=== PATIENT | male | born 1995 | race Caucasian/White ===

== ENCOUNTER 2016-11-05 16:19 | Emergency (ER) | payer OTHER ==
--- NOTE | 2016-11-05 17:13 | ER Document Report ---
ED Psych Disorder / Suicide - General TRAVEL OUTSIDE OF THE [place] IN LAST 30 DAYS: No <JNOG JAY - Last Filed: 11/05/16 18:56> <JIA MARTINEZ - Last Filed: 11/06/16 14:07> - General Chief Complaint: Suicidal Ideation Stated Complaint: SUICIDAL IDEATIONS Notes: Patient is here with his mother having reportedly written a note that he shared with friends at school that he intended to break a bathroom window and use the broken glass to slit his wrist to kill himself today. The friends and others were able to get to him in time to keep him from doing so. Patient does not identify any triggering activities or recurrences that brought him to feeling suicidal so quickly. No history of previous suicide attempt. Patient says that he's been suffering from depression for about 7 years. He's only been feeling suicidal for about 7 days. The patient has a history of ADHD , ODD, IED, and Aspergers syndrome. He is not on any current medications for any of these disorders. Patient's only other medical condition is that he has insulin-dependent diabetes for the past 2 years. He is on NovoLog 70/30, 80 units every 10 AM and 8 units every 10 PM (JONG JAY) - Related Data Allergies/Adverse Reactions: No Known Allergies Allergy (Unverified 01/09/15 16:22) Past Medical History - Social History Smoking Status: Unknown if Ever Smoked Cigarette use (# per day): No Family History: Reviewed & Not Pertinent Patient has suicidal ideation: Yes Patient has homicidal ideation: No - Past Medical History Cardiac Medical History: Reports: Hx Hypercholesterolemia Endocrine Medical History: Reports: Hx Diabetes Mellitus Type 1 Psychiatric Medical History: Reports: Hx Attention Deficit Hyperactivity Disorder, Other - ODD, IED, Aspergers syndrome Past Surgical History: Reports: Hx Orthopedic Surgery - rt foot arch repair - Immunizations Hx Diphtheria, Pertussis, Tetanus Vaccination: Yes <JONG JAY - Last Filed: 11/05/16 18:56> Review of Systems <JONG JAY - Last Filed: 11/05/16 18:56> <JIA MARTINEZ - Last Filed: 11/06/16 14:07> - Review of Systems Notes: REVIEW OF SYSTEMS: CONSTITUTIONAL : Denies fever. EENT: Denies eye, ear, nose or mouth or throat pain or other symptoms. CARDIOVASCULAR: Denies chest pain. RESPIRATORY: Denies cough, chest congestion, or shortness of breath. GASTROINTESTINAL: Denies abdominal pain or nausea, vomiting, or diarrhea. GENITOURINARY: Denies difficulty or painful urinating, urinary frequency, blood in urine. MUSCULOSKELETAL: Denies back or neck pain. Denies joint pain or swelling. SKIN: Denies rash or skin lesions. NEUROLOGICAL: Denies LOC or altered mental status. Denies headache. Denies sensory loss or motor deficits. Psychiatric: Depression, see history of present illness. ALL OTHER SYSTEMS REVIEWED AND NEGATIVE. (JONG JAY) Physical Exam - Vital signs Interpretation: Normal <JONG JAY - Last Filed: 11/05/16 18:56> <JIA MARTINEZ - Last Filed: 11/06/16 14:07> - Vital signs Vitals: Temp Pulse Resp BP Pulse Ox 98.1 F 76 14 146/75 H 96 11/05/16 16:21 11/05/16 16:21 11/05/16 16:21 11/05/16 16:21 11/05/16 16:21 - Notes Notes: PHYSICAL EXAMINATION: GENERAL: Well-appearing, in no acute distress. Vital signs are all normal. HEAD: Atraumatic, normocephalic. EYES: Pupils equal round and reactive to light, extraocular movements intact. ENT: oropharynx clear without exudates. Moist mucous membranes. NECK: Normal range of motion, supple. LUNGS: Breath sounds clear and equal bilaterally. HEART: Regular rate and rhythm without murmurs. ABDOMEN: Soft, nontender. No guarding or rebound. BACK: No tenderness throughout entire back. EXTREMITIES: Normal range of motion without pain. NEUROLOGICAL: Normal speech, normal gait. Normal sensory, motor, and reflex exams. Awake, alert, and oriented x3. Cranial nerves normal. PSYCH: Normal mood, normal affect. SKIN: Warm, dry, no rashes. (JONG JAY) Course - Laboratory Result Diagrams: 11/05/16 17:24 11/05/16 17:24 - EKG Interpretation by Ok EKG shows normal: Sinus rhythm Rate: Normal Rhythm: NSR <JONG JAY - Last Filed: 11/05/16 18:56> - Laboratory Result Diagrams: 11/05/16 17:24 11/05/16 17:24 <JIA MARTINEZ - Last Filed: 11/06/16 14:07> - Re-evaluation Re-evalutation: 11/05/16 18:57 Patient evaluated by mental health staff and started on Keppra and Zyprexa and they will follow up with him in the morning. Patient is staying voluntarily for tonight. (JONG JAY) - Vital Signs Vital signs: Temp Pulse Resp BP Pulse Ox 97.7 F 81 18 133/76 H 96 11/06/16 13:00 11/06/16 13:00 11/06/16 13:00 11/06/16 13:00 11/06/16 13:00 - Laboratory Laboratory results interpreted by me: 11/05/16 11/05/16 11/05/16 17:24 19:05 20:24 Glucose 234 H POC Glucose 248 H Calcium 10.4 H Urine Glucose (UA) >=500 H Urine Urobilinogen 2.0 H Salicylates < 1.0 L Acetaminophen < 10 L 11/06/16 11/06/16 05:02 08:12 Glucose POC Glucose 228 H 178 H Calcium Urine Glucose (UA) Urine Urobilinogen Salicylates Acetaminophen - EKG Interpretation by Me Additional EKG results interpreted by me: 11/05/16 18:59 EKG is normal. (JONG JAY) Discharge <JONG JAY - Last Filed: 11/05/16 18:56> <JIA MARTINEZ - Last Filed: 11/06/16 14:07> - Discharge Clinical Impression: Suicidal ideation, Autism Condition: Stable Disposition: HOME, SELF-CARE Additional Instructions: DEPRESSION: Your evaluation reveals that you have mental depression. While symptoms may be vague, they often include disturbance of sleep, fatigue, loss of appetite , and general loss of interest in life. While depression may be a side effect of drugs, or a reaction to a major change in your life, many cases have no known cause. If depression is acute, and related to a major loss in your life, you can expect it to clear completely with time. If you have been depressed a long time , are prone to repeated bouts of depression or low mood, or have been thinking of suicide, get help. Depression can be treated with anti-depressant medication and counselling. Long-term depression will often take a few weeks to clear, even with appropriate medication. Follow-up care is important. SUICIDAL IDEATION: Suicidal ideation is a common medical term for thoughts about suicide, which may be as detailed as a formulated plan, without the suicidal act itself. Although most people who undergo suicidal ideation do not commit suicide, some go on to make suicide attempts. The range of suicidal ideation varies greatly from fleeting to detailed planning, role playing, and unsuccessful attempts. While thoughts about suicide are common, most people do not carry out serious actions to commit suicide. Based upon your evaluation and discussion with you, we do not believe you are currently at risk to act upon your thoughts of suicide. You have agreed to return to the Emergency Department, at any time , if you feel inclined to act upon your suicidal thoughts. FOLLOW-UP CARE: If you have been referred to [facility] for follow-up care, your appointment is WednesdayNovember 10 at 3pm. If you experience worsening or a significant change in your symptoms, notify the physician immediately or return to the Emergency Department at any time for re-evaluation. Prescriptions: Levetiracetam [Keppra 500 mg Tablet] 500 mg PO Q12 #14 tablet Olanzapine [Zyprexa 2.5 Mg Tablet] 2.5 mg PO BID #14 tablet Forms: Return to Work Referrals: ROSANA HENDRICKSON MD [Primary Care Provider] - (in 2-3 days return to er sooner for increasing worsening or new symptoms)
[2016-11-05 17:35] LABS: ABSOLUTE BASOPHILS # (AUTO) 0.1 10^3/uL (0.0-0.2); ABSOLUTE EOSINOPHILS # (AUTO) 0.2 10^3/uL (0.0-0.6); ABSOLUTE LYMPHOCYTES (AUTO) 2.4 10^3/uL (0.5-4.7); ABSOLUTE MONOCYTES (AUTO) 0.8 10^3/uL (0.1-1.4); BASOPHILS % (AUTO) 0.9 % (0-2); EOSINOPHILS % (AUTO) 1.8 % (0-6); HEMATOCRIT 44.6 % (37.9-51.0); HEMOGLOBIN 15.6 g/dL (13.5-17.0); HGB HCT DIFFERENCE 2.2; LYMPHOCYTES % (AUTO) 25.3 % (13-45); MEAN CORPUSCULAR HEMOGLOBIN 29.9 pg (27.0-33.4); MEAN CORPUSCULAR VOLUME 85 fl (80-97); MONOCYTES % (AUTO) 8.3 % (3-13); RED BLOOD COUNT 5.23 10^6/uL (4.35-5.55); RED CELL DISTRIBUTION WIDTH 12.7 % (11.5-14.0); SEGMENTED NEUTROPHILS % (AUTO) 63.7 % (42-78); WHITE BLOOD COUNT 9.4 10^3/uL (4.0-10.5)
[2016-11-05 17:54] LABS: ALANINE AMINOTRANSFERASE 50 U/L (21-72); ALBUMIN 4.5 g/dL (3.5-5.0); ALKALINE PHOSPHATASE 61 U/L (38-126); ANION GAP 15 (5-19); ASPARTATE AMINO TRANSFERASE 31 U/L (17-59); BILIRUBIN,DIRECT 0.4 mg/dL (0.0-0.4); BILIRUBIN,TOTAL 0.7 mg/dL (0.2-1.3); BLOOD UREA NITROGEN 15 mg/dL (7-20); CALCIUM 10.4 mg/dL (8.4-10.2); CARBON DIOXIDE 28 mmol/L (22-30); CHLORIDE 102 mmol/L (98-107); GLUCOSE 234 mg/dL (75-110); POTASSIUM 4.4 mmol/L (3.6-5.0); SODIUM 144.7 mmol/L (137-145); TOTAL PROTEIN 7.3 g/dL (6.3-8.2)
[2016-11-05 17:59] LABS: ALCOHOL < 10 mg/dL (NONE DETECTED)
[2016-11-05] MEDS ORDERED: LEVETIRACETAM 500 MG TABLET PO SCH (18:15)
[2016-11-05] MEDS ORDERED: OLANZAPINE 2.5 MG TABLET PO SCH (18:15)
[2016-11-05 19:44] LABS: APPEARANCE,URINE SLIGHTLY-CLOUDY; BILIRUBIN,URINE NEGATIVE (NEGATIVE); GLUCOSE, URINE >=500 mg/dL (NEGATIVE); KETONES,URINE NEGATIVE (NEGATIVE); LEUKOCYTE ESTERASE,URINE NEGATIVE (NEGATIVE); NITRITE,URINE NEGATIVE (NEGATIVE); PROTEIN,URINE NEGATIVE (NEGATIVE); URINE SPECIFIC GRAVITY 1.023
[2016-11-05 19:57] LABS: URINE BARBITURATES SCREEN NEGATIVE; URINE METHADONE SCREEN NEGATIVE; URINE OPIATES LOW NEGATIVE; URINE PHENCYCLIDINE SCREEN NEGATIVE
[2016-11-05] MEDS: INSULIN INJ SCH (20:30)
[2016-11-05] MEDS: NOVOLOG INJ SCH (20:30)
[2016-11-05] MEDS ORDERED: HUM INSULIN NPH/REG INSULIN HM 100 UNIT/1 ML 3 ML SUBCUT SCH (22:00)
--- NOTE | 2016-11-06 09:37 | EKG REPORT ---
SEVERITY:- NORMAL ECG - SINUS RHYTHM : Confirmed by: Juliano Joseph 06-Nov-2016 09:36:27
[2016-11-06] MEDS: NOVOLOG INJ SCH (09:49)
[2016-11-06] MEDS: INSULIN INJ SCH (09:49)
--- NOTE | 2016-11-06 11:22 | PSYCHOLOGICAL NOTE ---
Psych Note - Psych Note Psych Note: Pt presents to ED with c/o of SI. Mother with patient and states, "It has been going on for awhile, stated he had a plan to bust out mirror where there was no cameras and slit his wrists while at school" Pt is a student at [employer] and is a senior. Pt reports feeling more stressed. Pt denies any previous attempts or hx of SI. Mother reports patient has hx ADD, ODD, Intermittent explosive disorder. Patient states that he wrote the letter to a friend that he was going to go into the bathroom, brake the mirror and cut his wrists. Patient disclosed that he wrote the letter last night and then after he gave the letter to his friend when to the cafeteria to eat breakfast. He continued to disclose that he then heard his name announced over the intercom and went to the office. Patient states that he is unable to identify the trigger that "everything has been the same stressors." Clinician notes the patient was started on Celexa 5 days ago. Patient states he is glad his friends notified school staff to help him. Patient states he has had depression for 7 years but it has become worse. He is able to describe his depression as "tiring" the color of a deep dark blue night corinne that is both "heavy and numbing." Patient's mother disclosed the patient has a diagnosis of Asperger's, ADHD, ODD and intermittent explosive disorder. She continued disclosed that he does have an IEP in school however it is not focused on behavior. He states that he has no history of suicidal ideation or gestures. Patient does not see any outpatient mental health provider or take any medications for his mental health. She disclosed that she had a negative reaction to Shantex when she was attempting to quit smoking which resulted in suicidal ideation and gestures. Patient is alert and orientated to person place time and circumstance. Mood is euthymic with congruent affect. Patient endorses suicidal ideation with disclosed plan and written letter. Patient denies homicidal ideation. Patient denies auditory and visual hallucinations; no delusions are noted. Thought process is logical organized and linear. Eye contact was fair. Intellectual abilities appear to be low average range. Attention and concentration are fair. Insight, judgment, impulse control are fair. 299.00 (F84.0) autism spectrum disorder per history provided by patient and family 313.81 (F91.3) oppositional defiant disorder per history provided by patient and family 312.34(F63.81) intermittent explosive disorder per history provided by patient and family 314.01 (F90.9) unspecified attention deficit hyperactivity disorder per history provided by patient and family Impression\\plan: Patient is recommended to a mental health hold for overnight observation. Patient disclosed starting an antidepressant approximately 5 days ago with possible suicidal ideation side effect; family history noted with similar reaction. Patient has a history of Asperger's, ADHD, ODD and intermittent explosive disorder however has no mental health outpatient provider. Patient will be reevaluated. Dr. Mondragon was consulted on the care management of this patient; attending physician is in agreement with recommendations and disposition.
--- NOTE | 2016-11-06 11:45 | ER Document Report ---
ED Psych Disorder / Suicide - General Mode of Arrival: Ambulatory Information source: Patient, Parent TRAVEL OUTSIDE OF THE [place] IN LAST 30 DAYS: No - HPI Patient complains to provider of: Suicidal ideation, Suicidal plan Situational problems related to: School, Work, Other - family Associated symptoms: Normal affect, Normal mood <MARCI BARROS - Last Filed: 11/06/16 11:40> <JIA MARTINEZ - Last Filed: 11/06/16 14:17> - General Chief Complaint: Suicidal Ideation Stated Complaint: SUICIDAL IDEATIONS - HPI Notes: Pt presents to ED with c/o of SI. Mother with patient and states, "It has been going on for awhile, stated he had a plan to bust out mirror where there was no cameras and slit his wrists while at school" Pt is a student at [employer] and is a senior. Pt reports feeling more stressed. Pt denies any previous attempts or hx of SI. Mother reports patient has hx ADD, ODD, Intermittent explosive disorder. Patient states he is feeling much better and is surprised he already feels better. Patient continued to disclose that he does not like therapy but explored other options with clinician such as equestrian or art therapy. Patient is alert and orientated to person place time and circumstance. Mood is euthymic with congruent affect. Patient endorses suicidal ideation with disclosed plan and written letter. Patient denies homicidal ideation. Patient denies auditory and visual hallucinations; no delusions are noted. Thought process is logical organized and linear. Eye contact was fair. Intellectual abilities appear to be low average range. Attention and concentration are fair. Insight, judgment, impulse control are fair. 299.00 (F84.0) autism spectrum disorder per history provided by patient and family 313.81 (F91.3) oppositional defiant disorder per history provided by patient and family 312.34(F63.81) intermittent explosive disorder per history provided by patient and family 314.01 (F90.9) unspecified attention deficit hyperactivity disorder per history provided by patient and family Impression\\plan: Patient is psychiatrically clear for discharge. He does not meet IVC criteria per [place] GS 122C. Patient disclosed starting an antidepressant approximately 5 days ago with possible suicidal ideation side effect;mother reports a family history of similar difficulties with antidepressant. Patient has a history of Asperger's, ADHD, ODD and intermittent explosive disorder. It is noted the patient delivered the note he wrote detailing his suicidal plan and then when to eat in the cafeteria and then went to the office when he was called over the intercom. This behaviour bueno not demonstrate intent and patient states he is glad his friends told the school officials. Patient is recommended to follow up with outpatient mental health provider. Dr. Mondragon was consulted on the care management of this patient; attending physician is in agreement with recommendations and disposition. (MARCI BARROS) - Related Data Allergies/Adverse Reactions: No Known Allergies Allergy (Unverified 01/09/15 16:22) Past Medical History - Social History Smoking Status: Unknown if Ever Smoked Cigarette use (# per day): No Chew tobacco use (# tins/day): No Frequency of alcohol use: Occasional Drug Abuse: None Family History: Reviewed & Not Pertinent Patient has suicidal ideation: Yes Patient has homicidal ideation: No - Past Medical History Cardiac Medical History: Reports: Hx Hypercholesterolemia Endocrine Medical History: Reports: Hx Diabetes Mellitus Type 1 Renal/ Medical History: Denies: Hx Peritoneal Dialysis Psychiatric Medical History: Reports: Hx Attention Deficit Hyperactivity Disorder, Other - ODD, IED, Aspergers syndrome Past Surgical History: Reports: Hx Orthopedic Surgery - rt foot arch repair - Immunizations Hx Diphtheria, Pertussis, Tetanus Vaccination: Yes <MARCI BARROS - Last Filed: 11/06/16 11:40> Course - Laboratory Result Diagrams: 11/05/16 17:24 11/05/16 17:24 <MARCI BARROS - Last Filed: 11/06/16 11:40> - Laboratory Result Diagrams: 11/05/16 17:24 11/05/16 17:24 <JIA MARTINEZ - Last Filed: 11/06/16 14:17> - Re-evaluation Re-evalutation: 11/06/16 14:17 Patient has been seen and evaluated by the psychiatric team and felt not to be acutely suicidal or homicidal. They have written discharge instructions and recommended medications which have written a seven-day supply for what is been taking here. At the bedside the patient is not suicidal homicidal or acute psychosis. Mother has some additional questions or going to be answered by the psychiatric team. Otherwise an outpatient follow-up secured and discussed reasons for ED return sooner (JIA MARTINEZ) - Vital Signs Vital signs: Temp Pulse Resp BP Pulse Ox 97.7 F 81 18 133/76 H 96 11/06/16 13:00 11/06/16 13:00 11/06/16 13:00 11/06/16 13:00 11/06/16 13:00 - Laboratory Laboratory results interpreted by me: 11/05/16 11/05/16 11/05/16 17:24 19:05 20:24 Glucose 234 H POC Glucose 248 H Calcium 10.4 H Urine Glucose (UA) >=500 H Urine Urobilinogen 2.0 H Salicylates < 1.0 L Acetaminophen < 10 L 11/06/16 11/06/16 05:02 08:12 Glucose POC Glucose 228 H 178 H Calcium Urine Glucose (UA) Urine Urobilinogen Salicylates Acetaminophen Discharge <MARCI BARROS - Last Filed: 11/06/16 11:40> <JIA MARTINEZ - Last Filed: 11/06/16 14:17> - Discharge Clinical Impression: Suicidal ideation, Autism Condition: Stable Disposition: HOME, SELF-CARE Additional Instructions: DEPRESSION: Your evaluation reveals that you have mental depression. While symptoms may be vague, they often include disturbance of sleep, fatigue, loss of appetite , and general loss of interest in life. While depression may be a side effect of drugs, or a reaction to a major change in your life, many cases have no known cause. If depression is acute, and related to a major loss in your life, you can expect it to clear completely with time. If you have been depressed a long time , are prone to repeated bouts of depression or low mood, or have been thinking of suicide, get help. Depression can be treated with anti-depressant medication and counselling. Long-term depression will often take a few weeks to clear, even with appropriate medication. Follow-up care is important. SUICIDAL IDEATION: Suicidal ideation is a common medical term for thoughts about suicide, which may be as detailed as a formulated plan, without the suicidal act itself. Although most people who undergo suicidal ideation do not commit suicide, some go on to make suicide attempts. The range of suicidal ideation varies greatly from fleeting to detailed planning, role playing, and unsuccessful attempts. While thoughts about suicide are common, most people do not carry out serious actions to commit suicide. Based upon your evaluation and discussion with you, we do not believe you are currently at risk to act upon your thoughts of suicide. You have agreed to return to the Emergency Department, at any time , if you feel inclined to act upon your suicidal thoughts. FOLLOW-UP CARE: If you have been referred to [facility] [place] for follow-up care, your appointment is WednesdayNovember 10 at 3pm. If you experience worsening or a significant change in your symptoms, notify the physician immediately or return to the Emergency Department at any time for re-evaluation. Prescriptions: Levetiracetam [Keppra 500 mg Tablet] 500 mg PO Q12 #14 tablet Olanzapine [Zyprexa 2.5 Mg Tablet] 2.5 mg PO BID #14 tablet Forms: Return to Work Referrals: ROSANA HENDRICKSON MD [Primary Care Provider] - (in 2-3 days return to er sooner for increasing worsening or new symptoms)
[2016-11-06 13:01] VITALS: BP 133/76
== END 2016-11-06 13:30 | disposition home or self-care (01) ==
LOC: ER 16:19
DX: R45.851 Suicidal ideations (principal); F84.0 Autistic disorder; F98.8 Other specified behavioral and emotional disorders with onset usually occurring in childhood and adolescence; F91.3 Oppositional defiant disorder
CPT/HCPCS: 36415; 80053; 80307; 81001; 82962; 85025; 93005; 93010; 99285

== ENCOUNTER 2017-01-30 15:22 | Emergency (ER) | payer MEDICAID, OTHER ==
--- NOTE | 2017-01-30 15:54 | ER Document Report ---
ED Medical Screen (RME) - General Chief Complaint: High Blood Sugar Stated Complaint: BLOOD SUGAR PROBLEM Time Seen by Provider: 01/30/17 15:53 Mode of Arrival: Ambulatory Information source: Patient TRAVEL OUTSIDE OF THE [place] IN LAST 30 DAYS: No - HPI Onset: This morning Onset/Duration: Gradual Quality of pain: No pain Associated Symptoms: Nausea, Weakness, Other - THIRSTY, BLURRED VISION. denies : Fever Exacerbated by: Denies Relieved by: Denies Similar symptoms previously: Yes Recently seen / treated by doctor: Yes - ROUTINE PER PCP. - Related Data Smoking: Non-smoker Frequency of alcohol use: None Drug Abuse: None Allergies/Adverse Reactions: insulin glargine [From Lantus] Allergy (Intermediate, Verified 01/30/17 15:38) Past Medical History - General Information source: Patient, Parent - Social History Cigarette use (# per day): No Chew tobacco use (# tins/day): No Frequency of alcohol use: None Drug Abuse: None Lives with: Parents Family history: Reviewed & Not Pertinent - Past Medical History Cardiac Medical History: Reports: Hx Hypercholesterolemia Endocrine Medical History: Reports: Hx Diabetes Mellitus Type 1 Renal/ Medical History: Denies: Hx Peritoneal Dialysis Psychiatric Medical History: Reports: Hx Attention Deficit Hyperactivity Disorder Past Surgical History: Reports: Hx Orthopedic Surgery - rt foot arch repair - Immunizations Hx Diphtheria, Pertussis, Tetanus Vaccination: Yes Review of Systems - Review of Systems Constitutional: See HPI EENT: See HPI Cardiovascular: No symptoms reported Respiratory: No symptoms reported Gastrointestinal: See HPI Genitourinary: No symptoms reported Musculoskeletal: No symptoms reported Skin: No symptoms reported Neurological/Psychological: No symptoms reported Physical Exam - Vital signs Vitals: Temp Pulse Resp BP Pulse Ox 98.1 F 78 20 142/76 H 95 01/30/17 15:27 01/30/17 15:27 01/30/17 15:27 01/30/17 15:27 01/30/17 15:27 Interpretation: Hypertensive. No: Tachycardic, Tachypneic, Febrile - General General appearance: Appears well, Alert In distress: None - HEENT Head: Normocephalic Eyes: Normal Conjunctiva: Normal Ears: Normal Nasal: Normal Mouth/Lips: Normal Mucous membranes: Dry - MILDLY Pharynx: Normal Neck: Normal - Respiratory Respiratory status: No respiratory distress - Cardiovascular Rhythm: Regular - Abdominal Inspection: Normal - Extremities General upper extremity: Normal inspection General lower extremity: Normal inspection - Neurological Neuro grossly intact: Yes - Psychological Associated symptoms: Normal affect, Normal mood - Skin Skin Temperature: Warm Skin Moisture: Dry Skin Color: Normal Course - Vital Signs Vital signs: Temp Pulse Resp BP Pulse Ox 98.1 F 78 20 142/76 H 95 01/30/17 15:27 01/30/17 15:27 01/30/17 15:27 01/30/17 15:27 01/30/17 15:27
[2017-01-30] MEDS ORDERED: NORMAL SALINE 1000 ML 1,000 ML IV ONE (15:59)
[2017-01-30] MEDS ORDERED: INSULIN REG, HUMAN 100 UNIT/ML 3 ML VIAL (PYX) IV ONE (15:59)
[2017-01-30 16:34] LABS: ABSOLUTE EOSINOPHILS # (AUTO) 0.2 10^3/uL (0.0-0.6); ABSOLUTE LYMPHOCYTES (AUTO) 2.1 10^3/uL (0.5-4.7); ABSOLUTE MONOCYTES (AUTO) 0.6 10^3/uL (0.1-1.4); ABSOLUTE NEUT (AUTO) 3.9 10^3/uL (1.7-8.2); BASOPHILS % (AUTO) 0.6 % (0-2); EOSINOPHILS % (AUTO) 2.9 % (0-6); HEMATOCRIT 43.6 % (37.9-51.0); HGB HCT DIFFERENCE 1.4; LYMPHOCYTES % (AUTO) 30.6 % (13-45); MEAN CORPUSCULAR HGB CONC 34.3 g/dL (32.0-36.0); MEAN CORPUSCULAR VOLUME 87 fl (80-97); MONOCYTES % (AUTO) 8.7 % (3-13); RED BLOOD COUNT 4.99 10^6/uL (4.35-5.55); RED CELL DISTRIBUTION WIDTH 12.5 % (11.5-14.0); SEGMENTED NEUTROPHILS % (AUTO) 57.2 % (42-78); WHITE BLOOD COUNT 6.8 10^3/uL (4.0-10.5)
[2017-01-30 16:36] LABS: VENOUS BLOOD BASE EXCESS 1.8 mmol/L; VENOUS BLOOD HCO3 27.8 mmol/L (20-32); VENOUS BLOOD PH 7.38 (7.30-7.42)
[2017-01-30 16:46] LABS: ALANINE AMINOTRANSFERASE 31 U/L (21-72); ALBUMIN 4.2 g/dL (3.5-5.0); ALKALINE PHOSPHATASE 103 U/L (38-126); ANION GAP 13 (5-19); ASPARTATE AMINO TRANSFERASE 18 U/L (17-59); BILIRUBIN,DIRECT 0.3 mg/dL (0.0-0.4); BILIRUBIN,TOTAL 0.5 mg/dL (0.2-1.3); BLOOD UREA NITROGEN 17 mg/dL (7-20); CALCIUM 9.5 mg/dL (8.4-10.2); CARBON DIOXIDE 24 mmol/L (22-30); CHLORIDE 96 mmol/L (98-107); CREATININE RESULT 0.81 mg/dL (0.52-1.25); POTASSIUM 4.6 mmol/L (3.6-5.0); SODIUM 133.2 mmol/L (137-145); TOTAL PROTEIN 7.1 g/dL (6.3-8.2)
[2017-01-30 17:03] LABS: GLUCOSE 642 mg/dL (75-110)
--- NOTE | 2017-01-30 17:09 | ER Document Report ---
ED Blood Sugar Problem - General Mode of Arrival: Ambulatory Information source: Patient, Parent TRAVEL OUTSIDE OF THE [place] IN LAST 30 DAYS: No - HPI Onset: Other - Refer to HPI notes <DANELLE BARNEY - Last Filed: 01/30/17 17:56> <JIA MARTINEZ - Last Filed: 01/31/17 22:54> - General Chief Complaint: High Blood Sugar Stated Complaint: BLOOD SUGAR PROBLEM Time Seen by Provider: 01/30/17 15:53 Notes: Patient is a 21 year old male presenting to the emergency department for hyperglycemia and blurry vision. Patient has type I diabetes mellitus. Patient' s last A1C was higher than 7. Patient has been evaluated in this ED multiple times in the past for hyperglycemia and not being compliant with his medications. Patient's sugar was 600 at home. Patient's blurred vision was onset x1 hour prior to arrival. Patient missed 3 doses, last dose was this morning 80 units of insulin. Patient was evaluated in the past for suicidal ideation. Patient sees Dr. Weber, [employer] [facility] in [place]. (DANELLE BARNEY) - Related Data Allergies/Adverse Reactions: insulin glargine [From Lantus] Allergy (Intermediate, Verified 01/30/17 15:38) Past Medical History - General Information source: Patient, Parent - Social History Smoking Status: Current Every Day Smoker Cigarette use (# per day): No Chew tobacco use (# tins/day): No Frequency of alcohol use: Occasional Drug Abuse: None Lives with: Parents Family History: None Patient has suicidal ideation: No Patient has homicidal ideation: No - Past Medical History Cardiac Medical History: Reports: Hx Hypercholesterolemia Endocrine Medical History: Reports: Hx Diabetes Mellitus Type 1 Psychiatric Medical History: Reports: Hx Attention Deficit Hyperactivity Disorder Past Surgical History: Reports: Hx Orthopedic Surgery - rt foot arch repair - Immunizations Hx Diphtheria, Pertussis, Tetanus Vaccination: Yes <DANELLE BARNEY - Last Filed: 01/30/17 17:56> Review of Systems - Review of Systems Constitutional: No symptoms reported EENT: See HPI, Blurred vision Cardiovascular: No symptoms reported Respiratory: No symptoms reported Gastrointestinal: No symptoms reported Genitourinary: No symptoms reported Male Genitourinary: No symptoms reported Musculoskeletal: No symptoms reported Skin: No symptoms reported Hematologic/Lymphatic: No symptoms reported Neurological/Psychological: No symptoms reported -: Yes All other systems reviewed and negative <DANELLE BARNEY - Last Filed: 01/30/17 17:56> Physical Exam <DANELLE BARNEY - Last Filed: 01/30/17 17:56> <JIA MARTINEZ - Last Filed: 01/31/17 22:54> - Vital signs Vitals: Temp Pulse Resp BP Pulse Ox 98.1 F 78 20 142/76 H 95 01/30/17 15:27 01/30/17 15:27 01/30/17 15:27 01/30/17 15:27 01/30/17 15:27 - Notes Notes: GENERAL: Alert, interacts well. No acute distress. HEAD: Normocephalic, atraumatic. EYES: Appear normal. Pupils equal, round, and reactive to light. ENT: Moist mucus membranes, tongue midline. NECK: Full range of motion. Supple. Trachea midline. LUNGS: Clear to auscultation bilaterally, no wheezes, rales, or rhonchi. No respiratory distress. HEART: Regular rate and rhythm. No murmurs, gallops, or rubs. ABDOMEN: Soft, non-tender. Non-distended. Normal bowel sounds. EXTREMITIES: Moves all 4 extremities spontaneously. Normal strength. No edema. NEUROLOGICAL: Alert and oriented x3. Normal speech. No focal neurological deficits. GSC 15. PSYCH: Normal affect, normal mood. SKIN: Warm, dry, normal turgor. No rashes or lesions noted. (SAVITADANELLE) Course - Laboratory Result Diagrams: 01/30/17 16:00 01/30/17 16:00 <DANELLE BARNEY - Last Filed: 01/30/17 17:56> - Laboratory Result Diagrams: 01/30/17 16:00 01/30/17 16:00 <JIA MARTINEZ - Last Filed: 01/31/17 22:54> - Re-evaluation Re-evalutation: 01/30/17 17:52 Presents emergency room with elevated blood sugar and blurred vision. His mom is here as well patient is noncompliant historically on his insulin has an medical care administrator hemoglobin A1c has been through the roof he takes it when he feels like it and missed 3 doses today. Denies being suicidal homicidal although he had a [id number] conversation about the fact that not taking his medication will lead to or permanent disability kidney dialysis and blindness. He is not in DKA today his vital signs are stable no active vomiting or neurological deficits mom is at the bedside states she cannot make him take it either. Given some IV insulin some subcu insulin and he is going to be discharged follow-up with his medical care administrator this week and discussed reasons for ED return sooner (JIA MARTINEZ) - Vital Signs Vital signs: Temp Pulse Resp BP Pulse Ox 97.9 F 81 16 134/67 H 97 01/30/17 18:12 01/30/17 18:12 01/30/17 18:12 01/30/17 18:12 01/30/17 18:12 - Laboratory Laboratory results interpreted by me: 01/30/17 01/30/17 01/30/17 16:00 16:00 17:16 Plt Count 141 L Sodium 133.2 L Chloride 96 L Glucose 642 H* POC Glucose Urine Glucose (UA) >=500 H 01/30/17 17:38 Plt Count Sodium Chloride Glucose POC Glucose 445 H* Urine Glucose (UA) Discharge <DANELLE BARNEY - Last Filed: 01/30/17 17:56> <JIA MARTINEZ - Last Filed: 01/31/17 22:54> - Discharge Clinical Impression: Hyperglycemia, Non-compliant on insulin Condition: Stable Disposition: HOME, SELF-CARE Additional Instructions: Hyperglycemia (High Blood Sugar) You have an abnormally high blood sugar. Not all high blood sugar requires long-term treatment. High blood sugar can be due to medications, , or the stress of illness. (These cases are "borderline diabetes.") If the doctor feels your high blood sugar might resolve with time, you may not require treatment now. You will be scheduled for further evaluation. It's very important that you follow through, to see if the blood sugar returns to normal levels. Uncontrolled high blood sugar leads to early heart disease, strokes, nerve damage, eye damage, and kidney damage. Call the physician if there is faintness, excess sleepiness, or very rapid breathing. follow up with your medical care administrator this week and please take insulin as prescribed return to er sooner for increasing worsening or new symptoms Scribe Attestation: 01/30/17 17:51 I personally performed the services described in the documentation reviewed the documentation recorded by my scribe in my presence and it accurately and completely records my words and actions (JIA MARTINEZ) Scribe Documentation - Scribe Written by Scribjerrod:: Abdullahi Mart 01/30/17 18:00 acting as scribe for :: Ronal <DANELLE BARNEY - Last Filed: 01/30/17 17:56>
[2017-01-30 17:38] LABS: APPEARANCE,URINE CLEAR; BILIRUBIN,URINE NEGATIVE (NEGATIVE); GLUCOSE, URINE >=500 mg/dL (NEGATIVE); KETONES,URINE NEGATIVE (NEGATIVE); LEUKOCYTE ESTERASE,URINE NEGATIVE (NEGATIVE); NITRITE,URINE NEGATIVE (NEGATIVE); PROTEIN,URINE NEGATIVE (NEGATIVE); URINE SPECIFIC GRAVITY 1.032; UROBILINOGEN,URINE NEGATIVE mg/dL (<2.0)
[2017-01-30 18:14] VITALS: BP 134/67
== END 2017-01-30 18:15 | disposition home or self-care (01) ==
LOC: ER 15:22
DX: E10.65 Type 1 diabetes mellitus with hyperglycemia (principal); T38.3X6A Underdosing of insulin and oral hypoglycemic [antidiabetic] drugs, initial encounter; Z91.14 Patient's other noncompliance with medication regimen; H53.8 Other visual disturbances; F17.200 Nicotine dependence, unspecified, uncomplicated; Z88.8 Allergy status to other drugs, medicaments and biological substances
CPT/HCPCS: 99283; 36415; 82962; 85025; 80053; 81001; 82803; J7030; J1815

== ENCOUNTER 2017-02-19 13:38 | Emergency (ER) | payer OTHER ==
--- NOTE | 2017-02-19 13:54 | ER Document Report ---
ED Hand/Wrist Injury - General Chief Complaint: Wrist Injury Stated Complaint: WRIST INJURY Time Seen by Provider: 02/19/17 13:51 Mode of Arrival: Ambulatory Information source: Patient Notes: Patient is a 21-year-old male who presents to the ER for right wrist pain after punching a wall yesterday. Patient states he punched the wall with his hand outstretched, hitting the palm on the wall because he "learned my lesson" last time he punched it with a closed fist. He denies any numbness or tingling. TRAVEL OUTSIDE OF THE [place] IN LAST 30 DAYS: No - Related Data Allergies/Adverse Reactions: insulin glargine [From Lantus] Allergy (Intermediate, Verified 02/19/17 14:04) Past Medical History - General Information source: Patient - Social History Smoking Status: Unknown if Ever Smoked Family History: None - Past Medical History Cardiac Medical History: Reports: Hx Hypercholesterolemia Endocrine Medical History: Reports: Hx Diabetes Mellitus Type 1 Renal/ Medical History: Denies: Hx Peritoneal Dialysis Psychiatric Medical History: Reports: Hx Attention Deficit Hyperactivity Disorder Past Surgical History: Reports: Hx Orthopedic Surgery - rt foot arch repair - Immunizations Hx Diphtheria, Pertussis, Tetanus Vaccination: Yes Review of Systems - Review of Systems Constitutional: No symptoms reported EENT: No symptoms reported Cardiovascular: No symptoms reported Respiratory: No symptoms reported Gastrointestinal: No symptoms reported Genitourinary: No symptoms reported Male Genitourinary: No symptoms reported Musculoskeletal: See HPI Skin: No symptoms reported Hematologic/Lymphatic: No symptoms reported Neurological/Psychological: No symptoms reported Physical Exam - Vital signs Vitals: Temp Pulse Resp BP Pulse Ox 98.4 F 88 16 133/77 H 96 02/19/17 13:42 02/19/17 13:42 02/19/17 13:42 02/19/17 13:42 02/19/17 13:42 - Notes Notes: PHYSICAL EXAMINATION: GENERAL: Well-appearing and in no acute distress. HEAD: Atraumatic, normocephalic. EYES: Pupils equal round and reactive to light, extraocular movements intact, sclera anicteric, conjunctiva are normal. ENT: ear canals without erythema or foreign body, TMs pearly roger with good bony landmarks, nares patent, oropharynx clear without exudates. Moist mucous membranes. NECK: Normal range of motion, supple without lymphadenopathy LUNGS: CTAB and equal. No wheezes rales or rhonchi. HEART: Regular rate and rhythm without murmurs ABDOMEN: Soft, no tenderness. No guarding, no rebound BACK: no vertebral tenderness, normal ROM GI/: no CVA tenderness EXTREMITIES: No snuffbox tenderness, no tenderness to the right wrist or hand, normal range of motion, no pitting edema. No cyanosis. NEUROLOGICAL: Cranial nerves grossly intact. Normal sensory/motor exams. PSYCH: Normal mood, normal affect. SKIN: Warm, Dry, normal turgor, no rashes or lesions noted Course - Re-evaluation Re-evalutation: 02/19/17 15:18 X-ray of the right hand and wrist negative for any acute pathology. - Vital Signs Vital signs: Temp Pulse Resp BP Pulse Ox 98.4 F 88 16 133/77 H 96 02/19/17 13:42 02/19/17 13:42 02/19/17 13:42 02/19/17 13:42 02/19/17 13:42 Discharge - Discharge Clinical Impression: Wrist pain Qualifiers: Laterality: right Qualified Code(s): M25.531 - Pain in right wrist Condition: Stable Disposition: HOME, SELF-CARE Additional Instructions: Return immediately for any new or worsening symptoms. Follow up with primary care provider, call tomorrow to make followup appointment.
--- NOTE | 2017-02-19 14:25 | RADIOLOGY REPORT (SQ) ---
EXAM DESCRIPTION: HAND RIGHT 3 VIEWS COMPLETED DATE/TIME: 02/19/2017 2:16 pm REASON FOR STUDY: punched wall, pain COMPARISON: None. EXAM PARAMETERS: NUMBER OF VIEWS: Three views. TECHNIQUE: AP, lateral and oblique radiographic images acquired of the right hand. LIMITATIONS: None. FINDINGS: MINERALIZATION: Normal. BONES: No acute fracture or dislocation. No worrisome bone lesions. JOINTS: No effusions. SOFT TISSUES: No soft tissue swelling. No foreign body. OTHER: No other significant finding. IMPRESSION: NEGATIVE STUDY OF THE RIGHT HAND. NO RADIOGRAPHIC EVIDENCE OF ACUTE INJURY. TECHNICAL DOCUMENTATION: JOB ID: [id number] [employer]- All Rights Reserved
--- NOTE | 2017-02-19 14:25 | RADIOLOGY REPORT (SQ) ---
EXAM DESCRIPTION: WRIST RIGHT 3 VIEWS COMPLETED DATE/TIME: 02/19/2017 2:16 pm REASON FOR STUDY: punched wall, pain COMPARISON: None. NUMBER OF VIEWS: Three views. TECHNIQUE: AP, lateral, and oblique radiographic images acquired of the right wrist. LIMITATIONS: None. FINDINGS: MINERALIZATION: Normal. BONES: No acute fracture or dislocation. No worrisome bone lesions. Normal alignment. SOFT TISSUES: No soft tissue swelling. No foreign body. OTHER: No other significant finding. IMPRESSION: NEGATIVE STUDY OF THE RIGHT WRIST. NO RADIOGRAPHIC EVIDENCE OF ACUTE INJURY. TECHNICAL DOCUMENTATION: JOB ID: [id number] [employer]- All Rights Reserved
[2017-02-19 15:23] VITALS: BP 126/74
== END 2017-02-19 15:23 | disposition home or self-care (01) ==
LOC: ER 13:38
DX: S69.91XA Unspecified injury of right wrist, hand and finger(s), initial encounter (principal); M25.531 Pain in right wrist; W22.01XA Walked into wall, initial encounter
CPT/HCPCS: 99283

== ENCOUNTER 2017-04-12 22:35 | Emergency (ER) | payer SELFPAY ==
[2017-04-12 23:50] LABS: ABSOLUTE BASOPHILS # (AUTO) 0.1 10^3/uL (0.0-0.2); ABSOLUTE EOSINOPHILS # (AUTO) 0.2 10^3/uL (0.0-0.6); ABSOLUTE LYMPHOCYTES (AUTO) 3.9 10^3/uL (0.5-4.7); ABSOLUTE MONOCYTES (AUTO) 0.7 10^3/uL (0.1-1.4); ABSOLUTE NEUT (AUTO) 4.2 10^3/uL (1.7-8.2); BASOPHILS % (AUTO) 0.8 % (0-2); EOSINOPHILS % (AUTO) 2.4 % (0-6); HEMATOCRIT 45.8 % (37.9-51.0); HEMOGLOBIN 16.5 g/dL (13.5-17.0); HGB HCT DIFFERENCE 3.7; LYMPHOCYTES % (AUTO) 43.1 % (13-45); MEAN CORPUSCULAR HEMOGLOBIN 30.6 pg (27.0-33.4); MEAN CORPUSCULAR VOLUME 85 fl (80-97); MONOCYTES % (AUTO) 7.4 % (3-13); RED BLOOD COUNT 5.38 10^6/uL (4.35-5.55); RED CELL DISTRIBUTION WIDTH 12.6 % (11.5-14.0); SEGMENTED NEUTROPHILS % (AUTO) 46.3 % (42-78); WHITE BLOOD COUNT 9.1 10^3/uL (4.0-10.5)
--- NOTE | 2017-04-12 23:51 | ER Document Report ---
ED General - General Chief Complaint: Suicidal Ideation Stated Complaint: SUICIDIAL IDEATION Time Seen by Provider: 04/12/17 23:41 Notes: Patient is a 21-year-old male who presents with complaint of suicidal ideations. Patient says today he had an argument with his grandmother became upset. He thought about cutting his wrists became to the ER instead. He says he is on medications to help stabilize his mood but says they are not working. He does not remember the names of his medications. He is diabetic. He does take insulin. He takes NovoLog 70/30 80 units twice a day. He has no other complaints at this time. TRAVEL OUTSIDE OF THE [place] IN LAST 30 DAYS: No - Related Data Allergies/Adverse Reactions: insulin glargine [From Lantus] Allergy (Intermediate, Verified 02/19/17 14:04) Past Medical History - Social History Smoking Status: Current Some Day Smoker Frequency of alcohol use: None Drug Abuse: None Family History: None Patient has suicidal ideation: Yes Patient has homicidal ideation: No - Past Medical History Cardiac Medical History: Reports: Hx Hypercholesterolemia Endocrine Medical History: Reports: Hx Diabetes Mellitus Type 1 Renal/ Medical History: Denies: Hx Peritoneal Dialysis Psychiatric Medical History: Reports: Hx Attention Deficit Hyperactivity Disorder, Hx Depression Past Surgical History: Reports: Hx Orthopedic Surgery - rt foot arch repair - Immunizations Hx Diphtheria, Pertussis, Tetanus Vaccination: Yes Review of Systems - Review of Systems Notes: My Normal Review Basic REVIEW OF SYSTEMS: CONSTITUTIONAL : Denies fever, chills, or sweats. Denies recent illness. EENT: Denies eye, ear, throat, or mouth pain or symptoms. Denies nasal or sinus congestion. RESPIRATORY: Denies cough, cold, or chest congestion. Denies shortness of breath, difficulty breathing, or wheezing. GASTROINTESTINAL: Denies abdominal pain. Denies nausea, vomiting, or diarrhea. Denies constipation. Last BM: GENITOURINARY: Denies difficulty urinating, painful urination, burning, frequency, or blood in urine. MUSCULOSKELETAL: Denies neck or back pain or joint pain or swelling. SKIN: Denies rash or skin lesions. NEUROLOGICAL: Denies altered mental status or loss of consciousness. Denies headache. Denies weakness or paralysis or loss of use of either side. Denies problems with gait or speech. Denies sensory or motor loss. Psychiatric: Suicidal thoughts. ALL OTHER SYSTEMS REVIEWED AND NEGATIVE. Physical Exam - Vital signs Vitals: Temp Pulse Resp BP Pulse Ox 98.3 F 72 18 131/91 H 98 04/12/17 22:48 04/12/17 22:48 04/12/17 22:48 04/12/17 22:48 04/12/17 22:48 - Notes Notes: General Appearance: Well nourished, alert, cooperative, no acute distress, no obvious discomfort. Well-appearing. Vitals: reviewed, See vital signs table. Head: no swelling or tenderness to the head Eyes: PERRL, EOMI, Conjuctiva clear Mouth: No decreasd moisture Lungs: No wheezing, No rales, No rhonci, No accessory muscle use, good air exchange bilaterally. Heart: Normal rate, Regular rythm, No murmur, no rub Abdomen: Normal BS, soft, No rigidity, No abdominal tenderness, No guarding, no rebound, no abdominal masses, no organomegaly Extremities: strength 5/5 in all extremities, good pulses in all extremities, no swelling or tenderness in the extremities, no edema. Skin: warm, dry, appropriate color, no rash Neuro: speech clear, oriented x 3, normal affect, responds appropriately to questions. Course - Re-evaluation Re-evalutation: 04/13/17 05:44 Patient is on involuntary commitment paperwork due to his suicidal threats. Patient does have a psychiatric history. He does not come here very frequently. He does want help for his suicidal ideations. Will have psychiatry evaluate him this morning. Dictation of this chart was performed using voice recognition software; therefore, there may be some unintended grammatical errors. - Vital Signs Vital signs: Temp Pulse Resp BP Pulse Ox 98.3 F 72 18 131/91 H 98 04/12/17 22:48 04/12/17 22:48 04/12/17 22:48 04/12/17 22:48 04/12/17 22:48 - Laboratory Result Diagrams: 04/12/17 23:35 04/12/17 23:35 Laboratory results interpreted by me: 04/12/17 04/12/17 23:35 23:35 Glucose 207 H Calcium 10.6 H Urine Glucose (UA) >=500 H Salicylates < 1.0 L Acetaminophen < 10 L - EKG Interpretation by Me Additional EKG results interpreted by me: 04/13/17 01:04 EKG is reviewed and interpreted by me. EKG shows sinus bradycardia with a rate of [address] segment elevation or depression. No ischemic T-wave inversions. CT interval, QRS duration, QTc intervals are within normal range. Old EKG for comparison is from November 05, 2016. Discharge - Discharge Clinical Impression: Suicidal ideation Diabetes Qualifiers: Diabetes mellitus type: type 1 Diabetes mellitus complication status: without complication Qualified Code(s): E10.9 - Type 1 diabetes mellitus without complications Condition: Stable Disposition: PSYCH HOSP/UNIT Referrals: ROSANA HENDRICKSON MD [Primary Care Provider] - Follow up as needed
[2017-04-12 23:56] LABS: APPEARANCE,URINE CLEAR; BILIRUBIN,URINE NEGATIVE (NEGATIVE); GLUCOSE, URINE >=500 mg/dL (NEGATIVE); KETONES,URINE NEGATIVE (NEGATIVE); LEUKOCYTE ESTERASE,URINE NEGATIVE (NEGATIVE); NITRITE,URINE NEGATIVE (NEGATIVE); PROTEIN,URINE NEGATIVE (NEGATIVE); URINE SPECIFIC GRAVITY 1.033; UROBILINOGEN,URINE NEGATIVE mg/dL (<2.0)
[2017-04-13 00:03] LABS: ALANINE AMINOTRANSFERASE 44 U/L (21-72); ALBUMIN 4.9 g/dL (3.5-5.0); ALKALINE PHOSPHATASE 72 U/L (38-126); ANION GAP 13 (5-19); ASPARTATE AMINO TRANSFERASE 18 U/L (17-59); BILIRUBIN,DIRECT 0.4 mg/dL (0.0-0.4); BILIRUBIN,TOTAL 0.6 mg/dL (0.2-1.3); BLOOD UREA NITROGEN 19 mg/dL (7-20); CALCIUM 10.6 mg/dL (8.4-10.2); CARBON DIOXIDE 29 mmol/L (22-30); CHLORIDE 100 mmol/L (98-107); CREATININE RESULT 0.93 mg/dL (0.52-1.25); GLUCOSE 207 mg/dL (75-110); POTASSIUM 4.1 mmol/L (3.6-5.0); SODIUM 141.9 mmol/L (137-145); TOTAL PROTEIN 7.8 g/dL (6.3-8.2)
[2017-04-13 00:05] LABS: ALCOHOL < 10 mg/dL (NONE DETECTED)
[2017-04-13 00:13] LABS: URINE BARBITURATES SCREEN NEGATIVE; URINE METHADONE SCREEN NEGATIVE; URINE OPIATES LOW NEGATIVE; URINE PHENCYCLIDINE SCREEN NEGATIVE
--- NOTE | 2017-04-13 04:46 | EKG REPORT ---
SEVERITY:- NORMAL ECG - SINUS RHYTHM : Confirmed by: Kendal Baca MD 13-Apr-2017 04:28:34
[2017-04-13 08:11] VITALS: BP 127/69
--- NOTE | 2017-04-13 09:21 | ER Document Report ---
Doctor's Note Notes: 04/13/17 09:20 As the rounding physician for our psychiatric patients, I have reviewed the chart, vitals, lab work. Patient has been examined and noted to be stable at this time superficial lacerations noted. I am awaiting mental health in [place]. 04/13/17 10:19
[2017-04-13] MEDS ORDERED: HUM INSULIN NPH/REG INSULIN HM 100 UNIT/1 ML 3 ML SUBCUT SCH (10:00)
--- NOTE | 2017-04-13 11:07 | ER Document Report ---
ED Psych Disorder / Suicide - General Information source: Patient, Parent, Relative, [facility] Records TRAVEL OUTSIDE OF THE [place] IN LAST 30 DAYS: No - HPI Patient complains to provider of: Suicidal ideation, Other - thought about cutting wrists, came to ER instead Suicide Risk Factors: Depressed, Other - Diabetic Situational problems related to: Other - home Normal mood: Yes Associated symptoms: Normal affect, Normal mood Similar symptoms previously: Yes Recently seen / treated by doctor: Yes <BAYLEE CALLAHAN - Last Filed: 04/13/17 10:54> <ALY PERALTA - Last Filed: 04/13/17 11:25> - General Chief Complaint: Suicidal Ideation Stated Complaint: SUICIDIAL IDEATION Time Seen by Provider: 04/12/17 23:41 - HPI Notes: Patient is a 21-year-old male who presents with complaint of suicidal ideations. Patient says today he had an argument with his grandmother became upset. He thought about cutting his wrists became to the ER instead. He says he is on medications to help stabilize his mood but says they are not working. He does not remember the names of his medications. Patient was prompted to call his mother to talk about his stressors and precipitating events. Patient states it is overwhelming having his aunt, uncle 2 cousins residing with he, his mother, and grandmother and grandfather. Patient states the only help he needs or what would resolve his problems, would be to move out. Discussed with patient how to go about helping himself and problem solving. Patient states he is agreeable to follow up with outpatient counseling to assist him in adaptive his current unhealthy coping skills. Patient denies wanting to by suicide. Patient denies wanting to harm himself or anyone else. Mother, Baylee states the patient wanted to kill himself. She states to her knowledge nothing specific precipitated this change in mood; however, states additional family members moved in which has added stress to the home life. Mother states the patient is follwoed only by Dr. Ponce and prescribed "Olanzapine and Levictracine." Mother states the patient attempted suicide in the past; however, upon further conversation patient made no actual attempts but wanted to slit his wrists at school with a piece of broken mirror. Mother states the patient wrote a note and gave it to a friend, who then reported his plan (10/26). Patient is A&O. Mood was euthymic with normal affect. Patient denies suicidal/ homicidal ideations, intent, plan, or means. Patient denies A/V H; delusions not noted. Thought processes were guarded, but organized and linear. Conversational speech was within normal limits for rate, tone, and prosody. Attention and focus were fair. Insight, judgment, and impulse control were poor. 299.00 (F84.0) autism spectrum disorder per history provided by patient and family 313.81 (F91.3) oppositional defiant disorder per history provided by patient and family 312.34(F63.81) intermittent explosive disorder per history provided by patient and family 314.01 (F90.9) unspecified attention deficit hyperactivity disorder per history provided by patient and family Impression\\plan: Patient is psychiatrically clear for discharge. He does not meet IVC criteria per MD GS 122C as he denies SI/HI. Patient is able to identify his stressors and is agreeable to follow up with an outpatient provider. Patient has a history of Asperger's, ADHD, ODD and intermittent explosive disorder. 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 Will provide resources. I consulted with Dr. Mondragon in regards to the care and management of this patient. (BAYLEE CALLAHAN) - Related Data Allergies/Adverse Reactions: insulin glargine [From Lantus] Allergy (Intermediate, Verified 02/19/17 14:04) Past Medical History - General Information source: Patient, Parent, [facility] Records - Social History Smoking Status: Current Some Day Smoker Frequency of alcohol use: None Drug Abuse: None Family History: None Patient has suicidal ideation: No - denies 04/13 Patient has homicidal ideation: No - Past Medical History Cardiac Medical History: Reports: Hx Hypercholesterolemia Endocrine Medical History: Reports: Hx Diabetes Mellitus Type 1 Renal/ Medical History: Denies: Hx Peritoneal Dialysis Psychiatric Medical History: Reports: Hx Attention Deficit Hyperactivity Disorder, Hx Depression Past Surgical History: Reports: Hx Orthopedic Surgery - rt foot arch repair - Immunizations Hx Diphtheria, Pertussis, Tetanus Vaccination: Yes <BAYLEE CALLAHAN - Last Filed: 04/13/17 10:54> - Vital signs Vitals: Temp Pulse Resp BP Pulse Ox 98.3 F 72 18 131/91 H 98 04/12/17 22:48 04/12/17 22:48 04/12/17 22:48 04/12/17 22:48 04/12/17 22:48 Course - Laboratory Result Diagrams: 04/12/17 23:35 04/12/17 23:35 <BAYLEE CALLAHAN - Last Filed: 04/13/17 10:54> - Laboratory Result Diagrams: 04/12/17 23:35 04/12/17 23:35 <ALY PERALTA - Last Filed: 04/13/17 11:25> - Re-evaluation Re-evalutation: 04/13/17 11:25 After performing a Medical Screening Examination, I estimate there is LOW risk for any life threatening mental health issues. At this time the patient looks extremely well and has not attempted severe self harm. I have reevaluated this patient multiple times and no significant life threatening changes are noted. The patient and I have discussed the diagnosis and risks, and we agree with discharging home with close follow-up with the understanding that symptoms and presentations can change. We also discussed returning to the Emergency Department immediately if new or worsening symptoms occur. We have discussed the symptoms which are most concerning (hallucinations, thoughts or actions of self harm or harm to others) that necessitate immediate return. (ALY PERALTA) - Vital Signs Vital signs: Temp Pulse Resp BP Pulse Ox 97.6 F 76 18 127/69 H 96 04/13/17 07:57 04/13/17 07:57 04/13/17 07:57 04/13/17 07:57 04/13/17 07:57 - Laboratory Laboratory results interpreted by me: 04/12/17 04/12/17 04/13/17 23:35 23:35 10:19 Glucose 207 H POC Glucose 338 H Calcium 10.6 H Urine Glucose (UA) >=500 H Salicylates < 1.0 L Acetaminophen < 10 L Discharge <BAYLEE CALLAHAN - Last Filed: 04/13/17 10:54> <ALY PERALTA - Last Filed: 04/13/17 11:25> - Discharge Clinical Impression: Suicidal ideation Diabetes Qualifiers: Diabetes mellitus type: type 1 Diabetes mellitus complication status: without complication Qualified Code(s): E10.9 - Type 1 diabetes mellitus without complications Condition: Stable Disposition: HOME, SELF-CARE Additional Instructions: Counseling Services It has been recommended that you seek professional counseling to assist you with the stresses that you are experiencing. Most people at some time in their lives experience personal problems with which they need help. Pride and feeling that one can't be helped keep a lot of people from the benefits of counseling. You have been provided a list of resources to assist you in following up for counseling and medication management. Please return if your symptoms worsen. Referrals: ROSANA HENDRICKSON MD [Primary Care Provider] - Follow up as needed [facility] [Provider Group] - 04/13/17 (Please call today and schedule apppointment)
== END 2017-04-13 11:38 | disposition home or self-care (01) ==
LOC: ER 22:35
DX: R45.851 Suicidal ideations (principal); E10.9 Type 1 diabetes mellitus without complications; Z79.4 Long term (current) use of insulin; F17.200 Nicotine dependence, unspecified, uncomplicated; E78.00 Pure hypercholesterolemia, unspecified; F84.0 Autistic disorder; F91.3 Oppositional defiant disorder; F63.81 Intermittent explosive disorder; F90.9 Attention-deficit hyperactivity disorder, unspecified type
CPT/HCPCS: 93005; 99285; 36415; 82962; 80307 ×4; 85025; 80053; 81001; 93010; J1815